=== PATIENT | female | born 1975 | race Caucasian/White ===

== ENCOUNTER 2020-06-08 13:27 | Emergency (ER) | payer BC, MEDICAID ==
[~2020-06-08] VITALS: Ht 167.6 cm; Wt 109.0 kg
[2020-06-08] MEDS ORDERED: SUMA25TA9 MT (14:11)
[2020-06-08 14:30] VITALS: BP 141/89
== END 2020-06-08 15:06 | disposition home or self-care (01) ==
LOC: ER 13:27
DX: R51.9 Headache, unspecified (principal); D64.9 Anemia, unspecified
CPT/HCPCS: 99283